=== PATIENT | female | born 1980 | race Caucasian/White ===

== ENCOUNTER 2022-12-11 15:58 | Emergency (ER) | payer OTHER, MEDICAID | END 2022-12-11 17:03 | disposition home or self-care (01) | LOC: JP.ED 15:58 | DX: S60.211A Contusion of right wrist, initial encounter (principal); F17.210 Nicotine dependence, cigarettes, uncomplicated; W18.30XA Fall on same level, unspecified, initial encounter; Y92.59 Other trade areas as the place of occurrence of the external cause; Y99.0 Civilian activity done for income or pay | CPT/HCPCS: 73110-26-RT; 73110-RT; 73130-26-RT; 73130-RT; 99282; 99283 ==